=== PATIENT | male | born 1960 | race Two or more races ===

== ENCOUNTER 2024-01-27 08:05 | Outpatient (AMB) | payer MEDICARE, MEDICAID, SELFPAY ==
[2024-01-27 08:15] VITALS: BP 126/83; PULSE 77; RESP 16; TEMP 36.9; O2SAT 97; BMI 30.1
--- NOTE | 2024-01-27 08:15 | PD.ORTHCLVIS ---
Vital signs 01/27/24 08:15 Height 1.75 m Height Method Stated Weight 92.533 kg Weight Measurement Method Standing Scale BMI 30.1 BP 126/83 Blood Pressure Source Automatic Cuff Blood Pressure Location Left Upper Arm Position Sitting Respiration 16 Pulse 77 Pulse Source Monitor Temp 98.5 F Temp Source Temporal Artery Scan Pulse Oximetry (%) 97 Oxygen Delivery Method Room Air Med/Allergies Allergies & Medications Allergies No Known Allergies Allergy (Verified 01/27/24 08:16) Medication Reconciliation acetaminophen 325 mg tablet 650 mg (2 x 325 mg) PO QID #90 tabs 03/09/23 [Rx Confirmed 01/27/24] aspirin 81 mg tablet,delayed release 81 mg PO BID #60 tabs 03/09/23 [Rx Confirmed 01/27/24] doxycycline hyclate 100 mg tablet 100 mg PO BID #14 tabs 03/09/23 [Rx Confirmed 01/27/24] gabapentin 300 mg capsule 300 mg PO .qhs #30 caps 03/09/23 [Rx Confirmed 01/27/24] oxycodone 5 mg tablet 5 mg PO Q6H PRN pain #28 tabs 03/09/23 [Rx Confirmed 01/27/24] sennosides 8.6 mg-docusate sodium 50 mg tablet (Senna-S) 1 tab-cap PO QDAY #30 tabs 03/09/23 [Rx Confirmed 01/27/24] cephalexin 500 mg capsule 500 mg PO BID 09/13/23 [History Confirmed 01/27/24] Exam Exam Patient is in no acute distress and is cooperative with the examination today. Patient has a normal mood and affect. Breathing is nonlabored. In no respiratory distress. Bilateral extremities were evaluated and demonstrates sensation intact to light touch. Palpable pedal pulses are present. No significant edema is present. Right knee incision is clean dry intact. Range of motion is 0 to 100 degrees Left knee range of motion is 0 to 110 degrees. There is varus deformity. Is tender to palpation medially and laterally. X-rays from [facility] reviewed by me today. This demonstrates a right total knee replacement that cemented in good and alignment position. Patient has significant varus deformity and complete obliteration of the medial joint space and lateral joint space. There are significant osteophytes present. There is significant varus deformity and significant posterior medial wear to the point where augments may be needed Assessment and Plan Problem List (1) Arthritis of left knee: Status: Acute (2) Status post total right knee replacement: Status: Acute Plan: Patient is a 62-year-old male with right knee pain status post right total knee replacement. He is doing well and his x-rays look good. He has significant left knee arthritis. The pain is affecting his quality life and. His significant varus deformity. The nature and purpose of the total knee replacement, alternative method(s) of treatment, the material risks involved, and the possibility of complications were fully explained to the patient. The patient does NOT have any of the following contraindications to TKA: - Active infection of the knee joint, OR - Active systemic bacteremia, OR - Active skin infection or open wound at surgical site, OR - Neuropathic arthritis, OR - Severe, rapidly progressive neurological disease, OR - Severe medical condition that makes risks of surgery outweigh the potential benefit The patient was told the most common risks and complications associated with a total knee replacement include, but are not limited to: blood clots in the leg, fatal pulmonary embolism, dislocation of the prosthesis, intraoperative and postoperative fractures of the femur or tibia, infection, failure of the prosthesis or grafting materials, complications from anesthesia, reactions to blood transfusions, postoperative leg length inequality, instability of the knee replacement, nerve damage or injury, vascular injury, delayed wound healing, infection, other injury or even . In addition, there are risks associated with anesthesia given during this operation. Also, the patient was told that after undergoing a total knee replacement there may still be persistent pain or disability. The patient was informed that the success of this operation in part depends upon the mechanical devices which are going to be implanted and that these devices can fail or malfunction, and may need to be repaired or replaced and there are no guarantees as to the longevity of this device or its parts and that it or its parts could fail prematurely. The patient was also notified that during the course of surgery, there may be a need to use bone graft from donors, and that any bone graft used will be carefully screened for communicable diseases, including AIDS, hepatitis, Sukumar-Creutzfeldt, or other diseases, but despite the screening procedures, there is a small chance that they could contract one of these diseases. Finally, the patient was asked to follow completely and fully with all advice and recommended treatments, and that recovery and ultimate outcome are affected by their compliance with recommended treatment. We discussed the risks, benefits and treatment alternatives, and the patient is interested in proceeding with surgery. We will try to set this up as expeditiously as possible. Advanced Care Planning Discussion Advance care planning discussed with:: patient Office Procedures GNS Level of Care Nursing/Assessment Patient Status: Established Patient Nursing Assessment/Reassesment: Medication Reconciliation, Update PMH in EMR and Vital Signs Coordination of Care: Complex Care and Chronic Disease 1-5, Education Simp Pt/Fam and Staff clarify orders Special Needs: Language special needs Established Patient Charge Established Patient Point Assignment: 80 Established Patient Point Charge: EP Level 3 (80-115) MA Intake Visit Data Collection New Patient or Established: Established Patient (seen at [facility] within 3 years) Reason for Visit:: lt knee pain Seen by Clinical Staff ONLY (RN/MA): No Printer Technician Required: Yes PCP or OBGYN visit in last 3 months: Yes Hx Now: No Do You Feel Safe at Home: Yes Questionairres Past Medical History Past Medical History Have you ever been diagnosed with any of the following: Neurological Problems Seizures: No Cardiology Problems Congestive Heart Failure: No Respiratory Problems Chronic Obstructive Pulmonary Disease (COPD): No Smoking: No Smoking Cessation Counseling: No Smoking Exposure: No Tobacco Use: No Clubbing: No Stomache/Intestinal Problems Hepatitis: No Genital/Urinary Problems Renal Disease: No Kidney Stones: Yes Musculoskeletal Problems Arthritis: Yes Endocrine Problems Diabetes Mellitus Type 1: No Diabetes Mellitus Type 2: No Other Problems Hospitalization: No Shingles: No Blood Transfusions: No Blood Transfusion Reaction: No Anesthesia Reactions: No Chicken Pox: Yes Measles: Yes Cancer: No Surgical History Total Knee Replacement: Yes Subjective Visit Visit for: follow up visit and knee Immunization / Flu Flu Vaccine in the Last 12 Months: Yes Flu Vaccine Exclusion Criteria: Already Received History of Present Illness Chief complaint: lt knee pain Date of injury / onset of symptoms: 5 months Mateus is a pleasant 63-year-old male whose been dealing with a longstanding history of bilateral knee pain. We did his right side 11 months ago. This is recovered well. He held off on getting the left side done as he had a recent rotator cuff surgery which is now healed. He also had some prostate issues which have now resolved. The left knee pain is affecting his quality life and happiness. He is using a cane and is taking anti-inflammatories. We previously injected his left knee quite a few times in the past. Pain Pain level (0-10): 5 Pain duration: with movement Pain location: inside (medial), outside (lateral), anterior and posterior Pain quality: aching Pain timing: increases with activity and stairs Associated signs & symptoms: none Ambulatory data Ambulatory device: cane Walking distance (minutes): 20 Treatments Improvement with NSAIDS: n/a Review of Systems Review of Systems: All systems negative unless otherwise noted in HPI.
== END 2024-01-27 08:40 | disposition home or self-care (01) ==
LOC: HODSRG 08:05
PROVIDERS: Supervising Provider Orthopaedic Surgery Adult Reconstructive Orthopaedic Surgery; Visit Provider Orthopaedic Surgery Adult Reconstructive Orthopaedic Surgery
DX: M17.12 Unilateral primary osteoarthritis, left knee (principal); Z96.651 Presence of right artificial knee joint
CPT/HCPCS: 99213; G0463

== ENCOUNTER → 2024-02-17 | Outpatient (CLI) | payer MEDICARE, MEDICAID, SELFPAY ==
--- NOTE | 2024-02-17 13:00 | XR_ITS ---
Examination: CT left lower extremity, without contrast. 2-D sagittal reconstructions. 2-D coronal reconstructions. 3-D reconstructions. Date and time of exam:February 17, 2024 1451 hours INDICATIONS: Osteoarthritis left knee pain years CTDI: vol (mGy):10.4 DLP: (mGycm):748 Technique: Multiple 1.25 mm axial sections of the left lower extremity without intravenous contrast have been obtained. 2-D sagittal and coronal reconstructions have been obtained. 3-D reconstructions have been obtained. Low dose protocols were performed. One or more of the following dose reduction techniques were used; automated exposure control, adjustment of the mA and/or KV according to patient size, use of iterative reconstruction technique. Findings: Moderate osteopenia Mild narrowing left hip joint No left hip fracture or dislocation No avascular necrosis Advanced left knee tricompartment osteoarthritis, severe narrowing medial lateral joint spaces No fracture No avascular necrosis IMPRESSION: Advanced left knee tricompartment osteoarthritis including severe narrowing medial lateral joint spaces
== END | disposition home or self-care (01) ==
LOC: SCAT 14:04
PROVIDERS: Referring Provider Orthopaedic Surgery Adult Reconstructive Orthopaedic Surgery; Visit Provider Orthopaedic Surgery Adult Reconstructive Orthopaedic Surgery
DX: M17.12 Unilateral primary osteoarthritis, left knee (principal); M25.862 Other specified joint disorders, left knee
CPT/HCPCS: 73700

== ENCOUNTER 2024-02-29 08:00 | Day surgery (SDC) | payer MEDICARE, MEDICAID, SELFPAY ==
[2024-02-24 08:34] VITALS: BMI 31.6
--- NOTE | 2024-02-24 08:39 | EKG_ITS ---
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
[2024-02-24 10:30] LABS: Basophils % (Auto) 0 % (0-2.5); Eosinophils # (Auto) 0.2 Thou/mm3 (0.0-0.5); Eosinophils % (Auto) 3 % (0-10); Hemoglobin 16.1 g/dL (13.5-16.0); Immature Granulocytes % (Auto) 0 % (0-0); Lymphocytes # (Auto) 2.7 Thou/mm3 (1.0-4.8); Lymphocytes % (Auto) 45 % (10-50); Mean Corpuscular HGB Conc 34.3 g/dl (31.0-37.0); Mean Corpuscular Hemoglobin 29.1 pg (25.0-35.0); Mean Corpuscular Volume 85 fL (80-100); Monocytes # (Auto) 0.6 Thou/mm3 (0.0-0.8); Monocytes % (Auto) 9 % (0-12); Neutrophils # (Auto) 2.6 Thou/mm3 (1.8-7.7); Neutrophils % (Auto) 43 % (37-80); Nucleated Red Blood Cell % 0 /100 WBC (0); Platelet Count 216 Thou/mm3 (140-440); RDW Standard Deviation 41.2 fL (35.1-43.9); Red Blood Count 5.54 Miln/mm3 (4.50-5.90); White Blood Count 6.1 Thou/mm3 (3.8-10.6)
[2024-02-24 10:38] LABS: INR 1.1 (0.9-1.3); Partial Thromboplastin Time 25.7 Seconds (22.0-36.0); Prothrombin Time 11.6 Seconds (9.0-12.2)
[2024-02-24 11:05] LABS: Alanine Aminotransferase 24 U/L (10-49); Albumin, Serum 4.7 gm/dL (3.4-4.8); Albumin/Globulin Ratio 1.6 (1.2-2.2); Alkaline Phosphatase 118 U/L (46-116); Anion Gap 6 (7-16); BUN/Creatinine Ratio 12 Ratio (12-20); Blood Urea Nitrogen 12 mg/dL (9-23); Carbon Dioxide 30.6 mMol/L (20.0-31.0); Chloride 103 mMol/L (98-107); Estimated Creatinine Clearance 82.1 mL/min (>60); Glucose 91 mg/dL (74-106); Osmolality,Calculated 279 (275-295); Potassium 4.3 mMol/L (3.4-5.1); Sodium 140 mMol/L (136-145); Total Protein 7.7 gm/dL (5.7-8.2); eGFR > 60 See Note
[2024-02-24 11:19] LABS: Aspartate Amino Transferase 20 U/L (0-34)
[2024-02-29] VITALS (15 sets, daily range): BP systolic 120–151; BP diastolic 83–92; PULSE 57–81; RESP 12–20; TEMP 36.1–36.7; O2SAT 95–99; BMI 31.4; BMI 15.0
--- NOTE | 2024-02-29 09:40 | CHAP ---
Visited with patient giving encouragement and prayer.
[2024-02-29] MEDS: ACETAMINOPHEN 325 MG TABLET 650 MG PO (09:48)
[2024-02-29] MEDS: PREGABALIN 75 MG CAPSULE PO (09:50)
[2024-02-29] MEDS: MELOXICAM 7.5 MG TABLET PO (09:50)
--- NOTE | 2024-02-29 13:58 | ESOP_ITS ---
Date of Procedure 02/29/24 Pre Op Diagnosis left knee osteoarthritis Post Op Diagnosis left knee osteoarthritis Procedure left shun total knee replacement Findings full thickness cartilage loss and osteophytes Procedure Description Indication: The patient is a 63 year old who has a long history of left knee pain. X-rays show degenerative arthritis involving the knee. Over the past several years the patient has had increasing pain, progressive limitation in function. He has failed conservative measures including activity modification, physical therapy, injections, anti-inflammatories, and assistive devices. After a lengthy discussion of the risks and benefits, the patient presents now for total knee replacement. The nature and purpose of the total knee replacement, alternative method(s) of treatment, the material risks involved, and the possibility of complications were fully explained to the patient. The patient was told the most common risks and complications associated with a total knee replacement include, but are not limited to blood clots in the leg, fatal pulmonary embolism, dislocation of the prosthesis, intraoperative and postoperative fractures of the femur or tibia, infection, failure of the prosthesis or grafting materials, complications from anesthesia, reactions to blood transfusions, postoperative leg length inequality, instability of the knee replacement, nerve damage or injury, vascular injury, delayed wound healing, infections, other injury or even . In addition, there are risks associated with anesthesia given during this operation, temporary or permanent numbness on the skin lateral to the incision can be a complication unique to total knee surgery, and kneeling can be painful after knee replacement surgery. Also, the patient was told that after undergoing a total knee replacement there may still be pain or disability. We discussed with the patient that we will be using a robot-assisted technology. We discussed that there is a possibility of converting to manual instrumentation. The patient was informed that the success of this operation in part depends upon the mechanical devices which are going to be implanted and that these devices can fail or malfunction, and may need to be repaired or replaced and there are no guarantees as to the longevity of this device or its part and that it or its parts could fail prematurely. Finally, the patient was asked to follow completely and fully with all advice and recommended treatments, and that recovery and ultimate outcome are affected by their compliance with recommended treatment. Surgical technique: Patient was marked and consented in the pre-operative area. The patient was brought to the operating room and placed on the operating table in a supine position. Prior to positioning, a timeout procedure was performed between the surgeon, the anesthesiologist, and the nursing staff where the patient and the operative side were identified and confirmed. After adequate general anesthetic was obtained, the left lower extremity was prepped and draped in the usual sterile fashion. A weight based dose of Cefazolin were administered within 1 hour prior to incision. The robot was preregistered and calirated before the incision. The extremity was exsanguinated with an esmarch badge and tourniquet inflated to 250mmHg. A midline incision was made. A median parapatellar arthrotomy was made. The patella was subluxed laterally. A medial release was performed to expose the medial tibia. His femoral and tibial pins were placed through an intra incisional manner for both cases. Every effort was made to ensure that the distalmost aspect of the pin was hung in the second cortex. The arrays were then tightened several times to ensure that it was fixed for the remainder of the case. Both femoral and tibial checkpoints were then placed. We then went through the registration process of the bone. We then assessed the knee deformity and attempted to correct it. We also used the robot to aid in judging laxity in both extension and flexion. Final based on laxity and alignment we changed the preoperative assessment to obtain proper proper implant positioning and to correct deformity. Attention was then placed to the tibia. We made a tibial cut using the robot ensuring that both the MCL and the patella tendon were protected with retractors. We then went to the femur and made the posterior cut followed by the anterior cut and the anterior chamfer. The bone was then removed and we made a distal femur cut and a posterior chamfer cut. We verified all cuts. A trial reduction was performed with a size 5 femoral component and a size 4 keeled tibial component. The patella was cut and sized to a 31. The patella tracked centrally, and no lateral retinacular release was necessary. The trial implants were removed. The arrays, pins, and checkpoints were all removed. We performed a verification that all pins were removed. The cut bone surfaces were lavaged. A size 5 left femoral component, a size 4 keeled tibial component, and a size 31 patella were impacted into position. The knee was felt to be well balanced in the sagittal and coronal plane. The final 4x11 mm cruciate-substituting articular insert was impacted into the tibial tray. The knee was brought out to full extension, flexed up to 120 degrees. It was stable to varus and valgus stress and appropriately balanced in flexion and extension. The wounds were copiously irrigated following deflation of tourniquet. The medial retinaculum was reapproximated with #1 vicryl and quill. The subcutaneous tissues were closed with 0 and 2-0 interrupted Vicryl. The skin was closed with 3-0 Monofilament V loc suture. A sterile dressing was applied. The patient was transferred to a bed and brought to recovery in stable condition. The patient tolerated the procedure well. There were no intraoperative complications. Sponge and needle counts were correct times 2. As the attending surgeon, I attest I was present and performed the entire operation. Grafts/Implants Size 5 CR Femur Size 4 Tibia 11mm poly CS Anesthesia spinal Implants [employer] Pathology / specimen None Pathology comment: none Estimated Blood Loss 150 Condition Stable Disposition same day Surgeon Adelso Smith MD Surgical Staff Operation Date: 02/29/24 11:45 Case Staff Anesthesiologist: Christiano Daniel RN First Assistant: Tracee Dominique
--- NOTE | 2024-02-29 14:12 | SUR.PHASEI ---
pt arrived to PACU via gurney awake, alert, able to follow commands, breathing unlabored, dressing to left lower extremity clean, dry, and intact, report from Randal SIDDIQUI and Dr Daniel.
[2024-02-29] MEDS: HYDROmorphone INJ 2 MG/ML VIAL 0.4 MG IV ×2 (14:26→14:48)
--- NOTE | 2024-02-29 14:56 | XR_ITS ---
Examination: Left knee 2 views Technique one AP lateral left knee 2 views Exam date and time: February 29, 2024 1507 hours INDICATIONS: Postop knee arthroplasty FINDINGS: Total left knee arthroplasty. Satisfactory alignment. Moderate osteopenia. No fracture IMPRESSION: Total left knee arthroplasty with satisfactory alignment
[2024-02-29] MEDS: ACETAMINOPHEN IVPB 1,000 MG/100 ML VIAL 250 MG IV (14:58)
--- NOTE | 2024-02-29 15:20 | SUR.PHASEII ---
physical therapy at bedside
--- NOTE | 2024-02-29 15:30 | SUR.PHASEII ---
pt returned to [facility] after physical therapy, pt attempted to urinate in bathroom unsuccessfully.
--- NOTE | 2024-02-29 16:31 | SUR.PHASEII ---
pt able to urinate 50cc
--- NOTE | 2024-02-29 16:38 | SUR.PHASEII ---
Report to Bette SIDDIQUI
--- NOTE | 2024-02-29 16:45 | SUR.PHASEII ---
report received from nurse jaziel uriarte. breathing even and unlabored. dressing remains cdi. pt voided. tolerating po liquids. discharge instructions gone over with pt and family. all verbalized understanding. signed by daughter. discharged via wheel chair with all belongings.
== END 2024-02-29 16:45 | disposition home or self-care (01) ==
PROVIDERS: Anesthesiology; PCP Family Medicine; Referring Provider Orthopaedic Surgery Adult Reconstructive Orthopaedic Surgery; Visit Provider Orthopaedic Surgery Adult Reconstructive Orthopaedic Surgery
PROC: (CPT 27447; principal; 2024-02-29 11:30)
DX: M17.12 Unilateral primary osteoarthritis, left knee (principal); Z01.810 Encounter for preprocedural cardiovascular examination; M25.762 Osteophyte, left knee
CPT/HCPCS: 27447; 20985; 36415; 73560; 80053; 85025; 85610; 85730; 93005; 97162; A4217; C1713; C1776; J0131; J0690; J1100; J1885; J2250; J2405; J2704; J2795; J3010; J3490; J7030; J7999; A4648; A4649; A9270

== ENCOUNTER 2024-03-16 09:55 | Outpatient (AMB) | payer MEDICARE, MEDICAID, SELFPAY ==
[2024-03-16 10:03] VITALS: BP 164/90; PULSE 85; RESP 18; TEMP 36.9; O2SAT 97; BMI 29.9
--- NOTE | 2024-03-16 10:03 | ORTHONT_ITS ---
Vital signs 03/16/24 10:03 Height 1.75 m Height Method Stated Weight 91.881 kg Weight Measurement Method Standing Scale BMI 29.9 BP 164/90 H Blood Pressure Source Automatic Cuff Blood Pressure Location Left Upper Arm Position Sitting Respiration 18 Pulse 85 Pulse Source Monitor Temp 98.4 F Temp Source Temporal Artery Scan Pulse Oximetry (%) 97 Oxygen Delivery Method Room Air Med/Allergies Allergies & Medications Allergies No Known Allergies Allergy (Verified 03/16/24 10:03) Medication Reconciliation acetaminophen 500 mg tablet (Acetaminophen Extra Strength) 1,000 mg (2 x 500 mg) PO Q6H PRN pain #90 tabs 02/29/24 [Rx Confirmed 03/16/24] aspirin 81 mg tablet,delayed release 81 mg PO BID #60 tabs 02/29/24 [Rx Confirmed 03/16/24] doxycycline hyclate 100 mg tablet 100 mg PO BID #14 tabs 02/29/24 [Rx Confirmed 03/16/24] gabapentin 300 mg capsule 300 mg PO .qhs #30 caps 02/29/24 [Rx Confirmed 03/16/24] oxycodone 5 mg tablet 5 mg PO Q6H PRN pain #28 tabs 02/29/24 [Rx Confirmed 08/31] sennosides 8.6 mg-docusate sodium 50 mg tablet (Senna-S) 1 tab-cap PO QDAY #30 tabs 02/29/24 [Rx Confirmed 03/16/24] Exam Exam Patient is in no acute distress and is cooperative with the examination today. Patient has a normal mood and affect. Breathing is nonlabored. In no respiratory distress. Bilateral extremities were evaluated and demonstrates sensation intact to light touch. Palpable pedal pulses are present. No significant edema is present. Right knee incision is clean dry intact. Range of motion is 0 to 100 degrees Left knee range of motion is 0 to 110 degrees. Incision is c/d/i Assessment and Plan Problem List (1) Arthritis of left knee: Status: Acute Plan: Patient is doing well s/p l TKA. He should finsih his aspirin and start pt. We will see him in 6 weeks (2) Status post total right knee replacement: Status: Acute Advanced Care Planning Discussion Advance care planning discussed with:: patient Office Procedures GNS Level of Care Nursing/Assessment Patient Status: Established Patient Nursing Assessment/Reassesment: Medication Reconciliation, Update PMH in EMR and Vital Signs Coordination of Care: Complex Care and Chronic Disease 1-5, Education Complex Pt/Fam, Consent,records obtained, informed consent, Results/Orders obtained and Staff clarify orders Special Needs: Language special needs Established Patient Charge Established Patient Point Assignment: 95 Established Patient Point Charge: EP Level 3 (80-115) MA Intake Visit Data Collection New Patient or Established: Established Patient (seen at [facility] within 3 years) Reason for Visit:: 2 WEEK F/U POST OP Seen by Clinical Staff ONLY (RN/MA): No Sales Representative Groceries Required: Yes PCP or OBGYN visit in last 3 months: Yes Hx Now: No Do You Feel Safe at Home: Yes Authorities Contacted: N/A Questionairres Past Medical History Past Medical History Have you ever been diagnosed with any of the following: Neurological Problems Seizures: No Cardiology Problems Congestive Heart Failure: No Respiratory Problems Chronic Obstructive Pulmonary Disease (COPD): No Smoking: No Smoking Cessation Counseling: No Smoking Exposure: No Tobacco Use: No Clubbing: No Stomache/Intestinal Problems Hepatitis: No Genital/Urinary Problems Renal Disease: No Kidney Stones: Yes Prostate Cancer: Yes Musculoskeletal Problems Arthritis: Yes Endocrine Problems Diabetes Mellitus Type 1: No Diabetes Mellitus Type 2: No Other Problems Hospitalization: No Shingles: No Blood Transfusions: No Blood Transfusion Reaction: No Anesthesia Reactions: No Chicken Pox: Yes Measles: Yes Cancer: Yes Surgical History Total Knee Replacement: Yes Subjective Visit Visit for: follow up visit and post op #1 Immunization / Flu Flu Vaccine in the Last 12 Months: No Flu Vaccine Exclusion Criteria: Refused by Patient History of Present Illness Chief complaint: lt knee pain Date of injury / onset of symptoms: 5 months Mateus is a pleasant 63-year-old male whose been dealing with a longstanding history of bilateral knee pain. He is doing well s/p l tka Pain Pain level (0-10): 2 Pain duration: WITH MOVEMENT Pain location: inside (medial) Pain quality: aching Pain timing: increases with activity Associated signs & symptoms: none Ambulatory data Ambulatory device: walker Walking distance (minutes): 20 Treatments Improvement with previous injections: No Improvement with PT: No Improvement with NSAIDS: no Review of Systems Review of Systems: All systems negative unless otherwise noted in HPI.
== END 2024-03-16 10:13 | disposition home or self-care (01) ==
LOC: HODSRG 09:55
PROVIDERS: Supervising Provider Orthopaedic Surgery Adult Reconstructive Orthopaedic Surgery; Visit Provider Orthopaedic Surgery Adult Reconstructive Orthopaedic Surgery
DX: M17.12 Unilateral primary osteoarthritis, left knee (principal); Z96.652 Presence of left artificial knee joint
CPT/HCPCS: 99213; G0463

== ENCOUNTER 2024-04-13 13:20 | Outpatient (AMB) | payer MEDICARE, MEDICAID, SELFPAY ==
--- NOTE | 2024-04-13 13:43 | PD.ORTHCLVIS ---
Vital signs 04/13/24 13:44 Height 1.75 m Height Method Stated Weight 91.314 kg Weight Measurement Method Standing Scale BMI 29.8 BP 133/88 H Blood Pressure Source Automatic Cuff Blood Pressure Location Left Upper Arm Position Sitting Respiration 18 Pulse 75 Pulse Source Monitor Temp 98.5 F Temp Source Temporal Artery Scan Pulse Oximetry (%) 96 Oxygen Delivery Method Room Air Med/Allergies Allergies & Medications Allergies No Known Allergies Allergy (Verified 04/13/24 13:45) Medication Reconciliation acetaminophen 500 mg tablet (Acetaminophen Extra Strength) 1,000 mg (2 x 500 mg) PO Q6H PRN pain #90 tabs 02/29/24 [Rx Confirmed 04/13/24] aspirin 81 mg tablet,delayed release 81 mg PO BID #60 tabs 02/29/24 [Rx Confirmed 04/13/24] doxycycline hyclate 100 mg tablet 100 mg PO BID #14 tabs 02/29/24 [Rx Confirmed 04/13/24] gabapentin 300 mg capsule 300 mg PO .qhs #30 caps 02/29/24 [Rx Confirmed 04/13/24] oxycodone 5 mg tablet 5 mg PO Q6H PRN pain #28 tabs 02/29/24 [Rx Confirmed 04/13/24] sennosides 8.6 mg-docusate sodium 50 mg tablet (Senna-S) 1 tab-cap PO QDAY #30 tabs 02/29/24 [Rx Confirmed 04/13/24] Exam Exam Patient is in no acute distress and is cooperative with the examination today. Patient has a normal mood and affect. Breathing is nonlabored. In no respiratory distress. Bilateral extremities were evaluated and demonstrates sensation intact to light touch. Palpable pedal pulses are present. No significant edema is present. Bilateral knee incisions are clean dry and intact. Range of motion is 0 to 105 degrees. The knee feels stable varus valgus stress as well as AP translation. He has no x-rays with him today Assessment and Plan Problem List (1) History of total left knee replacement: Status: Acute Plan: Patient is a pleasant 63-year-old male who is status post bilateral total knee replacement. He is doing well. He has minimal pain. He can see me in approximately 2 months with new x-rays. He is very happy with his prior Advanced Care Planning Discussion Advance care planning discussed with:: patient Office Procedures GNS Level of Care Nursing/Assessment Patient Status: Established Patient Nursing Assessment/Reassesment: Medication Reconciliation, Update PMH in EMR and Vital Signs Coordination of Care: Complex Care and Chronic Disease 1-5, Education Complex Pt/Fam, Consent,records obtained, informed consent, Results/Orders obtained and Staff clarify orders Special Needs: Language special needs Established Patient Charge Established Patient Point Assignment: 95 Established Patient Point Charge: EP Level 3 (80-115) MA Intake Visit Data Collection New Patient or Established: Established Patient (seen at [facility] within 3 years) 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 PCP or OBGYN visit in last 3 months: Yes Hx Now: No Do You Feel Safe at Home: Yes Authorities Contacted: N/A Questionairres Past Medical History Past Medical History Have you ever been diagnosed with any of the following: Neurological Problems Seizures: No Cardiology Problems Congestive Heart Failure: No Respiratory Problems Chronic Obstructive Pulmonary Disease (COPD): No Smoking: No Smoking Cessation Counseling: No Smoking Exposure: No Tobacco Use: No Clubbing: No Stomache/Intestinal Problems Hepatitis: No Genital/Urinary Problems Renal Disease: No Kidney Stones: Yes Prostate Cancer: Yes Musculoskeletal Problems Arthritis: Yes Endocrine Problems Diabetes Mellitus Type 1: No Diabetes Mellitus Type 2: No Other Problems Hospitalization: No Shingles: No Blood Transfusions: No Blood Transfusion Reaction: No Anesthesia Reactions: No Chicken Pox: Yes Measles: Yes Cancer: Yes Surgical History Total Knee Replacement: Yes Subjective Visit Visit for: follow up visit and x-rays Immunization / Flu Flu Vaccine in the Last 12 Months: No Flu Vaccine Exclusion Criteria: No Exclusion Criteria History of Present Illness Chief complaint: Bilateral knee pain Mateus is a pleasant 63-year-old male who is status post bilateral total knee replacement. Most recently we did the left total knee replacement 6 weeks ago. He is doing well. He has minimal pain. Pain Pain level (0-10): 2 Pain duration: COMES AND GOES Pain location: anterior Pain quality: dull and aching Pain timing: increases with activity Associated signs & symptoms: none Ambulatory data Ambulatory device: none Treatments Improvement with previous injections: No Improvement with PT: No Improvement with NSAIDS: no Review of Systems Review of Systems: All systems negative unless otherwise noted in HPI.
[2024-04-13 13:44] VITALS: BP 133/88; PULSE 75; RESP 18; TEMP 36.9; O2SAT 96; BMI 29.8
--- NOTE | 2024-04-13 13:56 | XR_ITS ---
Examination: Bilateral knees 2 views Right lateral knee left lateral knee 2 views Bilateral axial knees single view TECHNIQUE: Bilateral AP knees standing single view, bilateral PA knees standing single view Standing right lateral knee left lateral knee 2 views Bilateral axial knees single view total 5 views Exam date and time: April 23, 2024 1412 hours INDICATIONS: 4 weeks postop left knee arthroplasty. FINDINGS: Moderate osteopenia Bilateral total knee arthroplasties. Satisfactory alignment No patellar dislocation IMPRESSION: Bilateral total knee arthroplasties with satisfactory alignment
== END 2024-04-13 13:58 | disposition home or self-care (01) ==
LOC: HODSRG 13:20
PROVIDERS: Supervising Provider Orthopaedic Surgery Adult Reconstructive Orthopaedic Surgery; Visit Provider Orthopaedic Surgery Adult Reconstructive Orthopaedic Surgery
DX: M25.561 Pain in right knee (principal); M25.562 Pain in left knee; Z96.653 Presence of artificial knee joint, bilateral
CPT/HCPCS: 73564; 99213; G0463

== ENCOUNTER 2024-06-22 09:36 | Outpatient (AMB) | payer MEDICARE, MEDICAID, SELFPAY ==
--- NOTE | 2024-06-22 10:09 | PD.ORTHCLVIS ---
Vital signs 06/22/24 10:26 Height 1.75 m Height Method Stated Weight 93.242 kg Weight Measurement Method Standing Scale BMI 30.4 BP 137/85 H Blood Pressure Source Automatic Cuff Blood Pressure Location Right Upper Arm Position Sitting Respiration 18 Pulse 64 Pulse Source Monitor Temp 98.1 F Temp Source Temporal Artery Scan Pulse Oximetry (%) 97 Oxygen Delivery Method Room Air Med/Allergies Allergies & Medications Allergies No Known Allergies Allergy (Verified 06/22/24 10:26) Medication Reconciliation acetaminophen 500 mg tablet (Acetaminophen Extra Strength) 1,000 mg (2 x 500 mg) PO Q6H PRN pain #90 tabs 02/29/24 [Rx Confirmed 06/22/24] aspirin 81 mg tablet,delayed release 81 mg PO BID #60 tabs 02/29/24 [Rx Confirmed 06/22/24] doxycycline hyclate 100 mg tablet 100 mg PO BID #14 tabs 02/29/24 [Rx Confirmed 06/22/24] gabapentin 300 mg capsule 300 mg PO .qhs #30 caps 02/29/24 [Rx Confirmed 06/22/24] oxycodone 5 mg tablet 5 mg PO Q6H PRN pain #28 tabs 02/29/24 [Rx Confirmed 06/22/24] sennosides 8.6 mg-docusate sodium 50 mg tablet (Senna-S) 1 tab-cap PO QDAY #30 tabs 02/29/24 [Rx Confirmed 06/22/24] Exam Exam Patient is in no acute distress and is cooperative with the examination today. Patient has a normal mood and affect. Breathing is nonlabored. In no respiratory distress. Bilateral extremities were evaluated and demonstrates sensation intact to light touch. Palpable pedal pulses are present. No significant edema is present. Bilateral knee incisions are clean dry and intact. Range of motion is 0 to 105 degrees. The knee feels stable varus valgus stress as well as AP translation. X-rays demonstrate bilateral cemented total knee replacements in good alignment position Assessment and Plan Problem List (1) History of total left knee replacement: Status: Acute Plan: Patient is a pleasant 63-year-old male who is status post bilateral total knee replacement. He is doing well. Please see him in approximately 6 weeks for routine follow-up Advanced Care Planning Discussion Advance care planning discussed with:: patient Office Procedures GNS Level of Care Nursing/Assessment Patient Status: Established Patient Nursing Assessment/Reassesment: Medication Reconciliation, Update PMH in EMR and Vital Signs Coordination of Care: Complex Care and Chronic Disease 1-5, Education Complex Pt/Fam, Consent,records obtained, informed consent, Results/Orders obtained and Staff clarify orders Special Needs: Language special needs Established Patient Charge Established Patient Point Assignment: 95 Established Patient Point Charge: EP Level 3 (80-115) MA Intake Visit Data Collection New Patient or Established: Established Patient (seen at [facility] within 3 years) Reason for Visit:: 6 WEEK FOLLOW UP Seen by Clinical Staff ONLY (RN/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 PCP or OBGYN visit in last 3 months: Yes Hx Now: No Do You Feel Safe at Home: Yes Authorities Contacted: N/A Questionairres Past Medical History Past Medical History Have you ever been diagnosed with any of the following: Neurological Problems Seizures: No Cardiology Problems Congestive Heart Failure: No Respiratory Problems Chronic Obstructive Pulmonary Disease (COPD): No Smoking: No Smoking Cessation Counseling: No Smoking Exposure: No Tobacco Use: No Clubbing: No Stomache/Intestinal Problems Hepatitis: No Genital/Urinary Problems Renal Disease: No Kidney Stones: Yes Prostate Cancer: Yes Musculoskeletal Problems Arthritis: Yes Endocrine Problems Diabetes Mellitus Type 1: No Diabetes Mellitus Type 2: No Other Problems Hospitalization: No Shingles: No Blood Transfusions: No Blood Transfusion Reaction: No Anesthesia Reactions: No Chicken Pox: Yes Measles: Yes Cancer: Yes Surgical History Total Knee Replacement: Yes Subjective Visit Visit for: follow up visit, post op #2 and hip Immunization / Flu Flu Vaccine in the Last 12 Months: No Flu Vaccine Exclusion Criteria: No Exclusion Criteria History of Present Illness Chief complaint: FOLLOW UP TKA Mateus is a pleasant 63-year-old male who is status post bilateral total knee replacement. Most recently we did the left total knee replacement 12 weeks ago. He is doing well. He has minimal pain. Pain Pain level (0-10): 2 Pain duration: COMES AND GOES Pain location: anterior Pain quality: dull and aching Pain timing: increases with activity Associated signs & symptoms: none Ambulatory data Ambulatory device: cane Treatments Improvement with previous injections: No Improvement with PT: No Improvement with NSAIDS: no Review of Systems Review of Systems: All systems negative unless otherwise noted in HPI.
[2024-06-22 10:26] VITALS: BP 137/85; PULSE 64; RESP 18; TEMP 36.7; O2SAT 97; BMI 30.4
== END 2024-06-22 10:15 | disposition home or self-care (01) ==
PROVIDERS: Supervising Provider Orthopaedic Surgery Adult Reconstructive Orthopaedic Surgery; Visit Provider Orthopaedic Surgery Adult Reconstructive Orthopaedic Surgery
DX: Z96.652 Presence of left artificial knee joint (principal)
CPT/HCPCS: 99213; G0463

== ENCOUNTER 2025-01-25 10:59 | Outpatient (AMB) | payer MEDICARE, MEDICAID, SELFPAY ==
--- NOTE | 2025-01-25 11:12 | XR_ITS ---
EXAMINATION: Bilateral knees 2 views Right lateral knee left lateral knee 2 views Bilateral [place] single view TECHNIQUE: Bilateral AP knees standing single view, bilateral PA knees standing single view flexion Standing right lateral knee left lateral knee 2 views Bilateral [place] single view Date and time: January 25, 2025, 1117 hours INDICATIONS: Bilateral knee replacements, right side 1 year ago left side 9 months ago FINDINGS: Mild osteopenia. Bilateral total knee arthroplasties. Satisfactory alignment No loosening of the bilateral prosthetic components No patellar dislocations IMPRESSION: Bilateral total knee arthroplasties with satisfactory alignment
--- NOTE | 2025-01-25 11:12 | PD.ORTHCLVIS ---
Vital signs 01/25/25 11:17 Height 1.75 m Height Method Stated Weight 92.788 kg Weight Measurement Method Standing Scale BMI 30.2 BP 145/79 H Blood Pressure Source Automatic Cuff Blood Pressure Location Left Upper Arm Position Sitting Respiration 18 Pulse 69 Pulse Source Monitor Temp 98.6 F Temp Source Temporal Artery Scan Pulse Oximetry (%) 94 L Oxygen Delivery Method Room Air Med/Allergies Allergies & Medications Allergies No Known Allergies Allergy (Verified 01/25/25 11:18) Medication Reconciliation acetaminophen 500 mg tablet (Acetaminophen Extra Strength) 1,000 mg (2 x 500 mg) PO Q6H PRN pain #90 tabs 02/29/24 [Rx Confirmed 01/25/25] aspirin 81 mg tablet,delayed release 81 mg PO BID #60 tabs 02/29/24 [Rx Confirmed 01/25/25] doxycycline hyclate 100 mg tablet 100 mg PO BID #14 tabs 02/29/24 [Rx Confirmed 01/25/25] gabapentin 300 mg capsule 300 mg PO .qhs #30 caps 02/29/24 [Rx Confirmed 01/25/25] oxycodone 5 mg tablet 5 mg PO Q6H PRN pain #28 tabs 02/29/24 [Rx Confirmed 01/25/25] sennosides 8.6 mg-docusate sodium 50 mg tablet (Senna-S) 1 tab-cap PO QDAY #30 tabs 02/29/24 [Rx Confirmed 01/25/25] Exam Exam Patient is in no acute distress and is cooperative with the examination today. Patient has a normal mood and affect. Breathing is nonlabored. In no respiratory distress. Bilateral extremities were evaluated and demonstrates sensation intact to light touch. Palpable pedal pulses are present. No significant edema is present. Bilateral knee incisions are clean dry and intact. Range of motion is 0 to 105 degrees. The knee feels stable varus valgus stress as well as AP translation. X-rays demonstrate bilateral cemented total knee replacements in good alignment position Assessment and Plan Problem List (1) History of total left knee replacement: Status: Acute Plan: Patient is a pleasant 63-year-old male who is status post bilateral total knee replacement. He is doing well. Please see him in approximately 12 months for routine followup Advanced Care Planning Discussion Advance care planning discussed with:: patient Office Procedures GNS Level of Care Nursing/Assessment Patient Status: Established Patient Nursing Assessment/Reassesment: Medication Reconciliation, Update PMH in EMR and Vital Signs Coordination of Care: Complex Care and Chronic Disease 1-5, Education Complex Pt/Fam, Consent,records obtained, informed consent, Results/Orders obtained and Staff clarify orders Special Needs: Language special needs Established Patient Charge Established Patient Point Assignment: 95 Established Patient Point Charge: EP Level 3 (80-115) MA Intake Visit Data Collection New Patient or Established: Established Patient (seen at [facility] within 3 years) Reason for Visit:: POST OP TKA Seen by Clinical Staff ONLY (RN/MA): No Director Of Social Work Required: Yes PCP or OBGYN visit in last 3 months: Yes Hx Now: No Do You Feel Safe at Home: Yes Authorities Contacted: N/A Questionairres Past Medical History Past Medical History Have you ever been diagnosed with any of the following: Neurological Problems Seizures: No Cardiology Problems Congestive Heart Failure: No Respiratory Problems Chronic Obstructive Pulmonary Disease (COPD): No Smoking: No Smoking Cessation Counseling: No Smoking Exposure: No Tobacco Use: No Clubbing: No Stomache/Intestinal Problems Hepatitis: No Genital/Urinary Problems Renal Disease: No Kidney Stones: Yes Prostate Cancer: Yes Musculoskeletal Problems Arthritis: Yes Endocrine Problems Diabetes Mellitus Type 1: No Diabetes Mellitus Type 2: No Other Problems Hospitalization: No Shingles: No Blood Transfusions: No Blood Transfusion Reaction: No Anesthesia Reactions: No Chicken Pox: Yes Measles: Yes Cancer: Yes Surgical History Total Knee Replacement: Yes Subjective Visit Visit for: follow up visit and knee (BILATERAL ) Immunization / Flu Flu Vaccine in the Last 12 Months: No Flu Vaccine Exclusion Criteria: No Exclusion Criteria History of Present Illness Chief complaint: FOLLOW UP TKA Mateus is a pleasant 63-year-old male who is status post bilateral total knee replacement. Most recently we did the left total knee replacement 11 months ago. He is doing well. He has minimal pain. Pain Pain level (0-10): 2 Pain duration: COMES AND GOES Pain location: anterior Pain quality: dull and aching Pain timing: increases with activity Associated signs & symptoms: none Ambulatory data Ambulatory device: cane Treatments Improvement with previous injections: No Improvement with PT: No Improvement with NSAIDS: no Review of Systems Review of Systems: All systems negative unless otherwise noted in HPI.
[2025-01-25 11:17] VITALS: BP 145/79; PULSE 69; RESP 18; TEMP 37; O2SAT 94; BMI 30.2
== END 2025-01-25 11:31 | disposition home or self-care (01) ==
PROVIDERS: Supervising Provider Orthopaedic Surgery Adult Reconstructive Orthopaedic Surgery; Visit Provider Orthopaedic Surgery Adult Reconstructive Orthopaedic Surgery
DX: Z47.1 Aftercare following joint replacement surgery (principal); Z96.652 Presence of left artificial knee joint
CPT/HCPCS: 73564; 99213; G0463